=== PATIENT | male | born 1970 | race African-American/Black ===

== ENCOUNTER 2020-04-29 14:44 | Emergency (ER) | payer BC, OTHER ==
[~2020-04-29] VITALS: Ht 170.2 cm; Wt 91.0 kg
--- NOTE | 2020-04-29 15:58 | RAD ---
EXAM: CHEST AP ONLY INDICATION: Reason: cough x 3 weeks, pui / Spl. Instructions: / History: . TECHNIQUE: Single view COMPARISON: None FINDINGS: The heart size is borderline enlarged.. The great vessels appear unremarkable. There is no hilar or mediastinal mass. The lungs are clear. There is no pleural effusion or pneumothorax. There are no significant osseous abnormalities. IMPRESSION: Borderline cardiomegaly. Otherwise no acute cardiopulmonary process. Electronically signed by: Odell Ulloa MD (04/29/2020 3:55 PM) [facility] [place]
--- NOTE | 2020-04-29 16:12 | ED.ADGEN ---
Past Medical History Past Medical History: High Cholesterol, Hypertension Past Surgical History: No Surgical History Smoking Status: Never Smoker Alcohol Use: Occasionally General Adult EDM: Chief Complaint: COUGH HPI: HPI: Patient is a 50 year old AA male who presents to the emergency department with complaints of a cough with clear sputum for the last week. He reports that his chest hurts with coughing and states that his chest feels tight but denies any palpitations. He denies any fever, or known contact with anyone who has COVID- 19. Patient states that he had a Covid test at his congregational earlier this week and it was negative. He reports that he was seen by his primary care doctor this week who diagnosed with hypertension and put him on losartan. He reports that his primary care doctor also gave him a Z-Chapito for his cough. The patient went to an urgent care center yesterday and was prescribed prednisone but he came here today because he continues to have the cough and is worried that he might have pneumonia. He denies any diaphoresis, extremity swelling, dizziness, vomiting, abdominal pain, diarrhea, sore throat, headache, ear pain, or sore throat. Patient states he has had some nausea but he reports that the postnasal drainage and nasal congestion has made him feel nauseated. He currently denies any pain. Review of Systems: Review of Systems: Complete ROS is negative unless otherwise noted in HPI. Allergies: Allergies: Allergies Coded Allergies Type Severity Reaction Last Updated Verified amoxicillin Adverse Reaction Unknown Nausea and Vomiting 04/29/20 Yes Physical Exam: PE: See Above Constitutional: Well developed, well nourished, no acute distress, non-toxic appearance. [] HENT: Normocephalic, atraumatic, bilateral external ears normal, nose normal. [] Eyes: PERRLA, EOMI, conjunctiva normal, no discharge. [] Neck: Normal range of motion, no stridor. [] Cardiovascular:Heart rate regular rhythm, no murmur [] Lungs & Thorax: Bilateral breath sounds CTA, respirations even and unlabored, no retractions, no respiratory distress Skin: Warm, dry, no erythema, no rash. [] Back: No tenderness Extremities: No cyanosis, ROM intact, no edema. [] Neurologic: Alert and oriented X 3, no focal deficits noted. [] Psychologic: Affect normal, judgement normal, mood normal. [] Current Patient Data: Vital Signs: Vital Signs Date Time Temp Pulse Resp B/P (MAP) Pulse Ox O2 Delivery O2 Flow Rate FiO2 04/29/20 15:45 98.5 77 18 194/118 (143) 98 Room Air 98.5 04/29/20 15:03 95.0 EKG: EKG: [] Heart Score: Risk Factors: Risk Factors: DM, Current or recent (<one month) smoker, HTN, HLP, family history of CAD, obesity. Risk Scores: Score 0 - 3: 2.5% MACE over next 6 weeks - Discharge Home Score 4 - 6: 20.3% MACE over next 6 weeks - Admit for Clinical Observation Score 7 - 10: 72.7% MACE over next 6 weeks - Early Invasive Strategies Radiology/Procedures: Radiology/Procedures: PROCEDURE: CHEST AP ONLY EXAM: CHEST AP ONLY INDICATION: Reason: cough x 3 weeks, pui / Spl. Instructions: / History: . TECHNIQUE: Single view COMPARISON: None FINDINGS: The heart size is borderline enlarged.. The great vessels appear unremarkable. There is no hilar or mediastinal mass. The lungs are clear. There is no pleural effusion or pneumothorax. There are no significant osseous abnormalities. IMPRESSION: Borderline cardiomegaly. Otherwise no acute cardiopulmonary process. [] Course & Med Decision Making: Course & Med Decision Making Pertinent Labs and Imaging studies reviewed. (See chart for details) 50-year-old male presents to the emergency room with complaints of chest tightness and a productive cough. He reported concerns of having walking pneumonia. Chest x-ray revealed borderline cardiomegaly, no other acute cardiopulmonary process. The patient's vital signs were stable. Physical exam and HPI is consistent with URI possible COVID-19. COVID-19 swab is ordered. I encouraged the patient to continue taking his Z-Chapito and steroids that were previously prescribed. Wrote prescriptions for Tessalon Perles and an albuterol inhaler. I encouraged patient to return to the ER if symptoms worsened and advised him to follow the COVID-19 instructions and quarantine. Patient verbalized an understanding of home care, medications, follow-up, and return to ED instructions and was in agreement with the plan of care. [] Dragon Disclaimer: Dragon Disclaimer: This electronic medical record was generated, in whole or in part, using a voice recognition dictation system. Departure Departure Impression: Primary Impression: Person under investigation for COVID-19 Additional Impressions: Cough in adult patient URI with cough and congestion Disposition: 01 DC HOME SELF CARE/HOMELESS Condition: STABLE Referrals: TYLER HERNANDEZ DO (PCP) Patient Instructions: Upper Respiratory Infection, Adult, [id number] Additional Instructions: Fill the prescriptions and take as directed. Continue taking the previous medications as prescribed by your primary care doctor in urgent care. Follow the following COVID-19 instructions. Return to the ER if your symptoms worsen. You have been tested for or diagnosed with COVID-19. It is an infection caused by a new type of coronavirus. COVID-19 will cause cold-like or mild flu symptoms in most. It can cause more severe symptoms like problems breathing in some. There is no treatment for COVID-19. The body will clear the infection over time. Self-care will help to ease discomfort. Steps to Take: Self-Care Rest as needed. Healthy habits may help you feel better. Steps include: Choose healthy foods including fruits and vegetables. Drink water throughout the day. Get plenty of sleep each night. If you smoke, try to quit. It may ease breathing. Avoid alcohol. Keep Others Healthy The virus can spread to others. Droplets are released every time you sneeze or cough. The droplets can get into the mouth, nose, or eyes of people near you and lead to infection. To lower the chances of spreading COVID-19 to others: Stay at home until your doctor has said it is safe to leave. If you tested positive this will mean staying isolated until both of the following are true: At least 7 days have passed since the start of illness. You are free of fever for at least 72 hours without the use of medicine. During this time: - Avoid public areas, events, or transportation. Do not return to work or school until your doctor has said it is safe to do so. - Call ahead if you need to go to a medical center. Let them know you may have COVID-19. It will help them guide you where to go. They may also ask you to wear a facemask when you come to the office. - If you call for emergency medical services, let them know you may have COVID- 19. While at home: - Try to avoid close contact with others. Stay about 6 feet away. - If possible, spend most of your time in a separate room from others. - Use a face mask if you will be in close contact with others such as sharing a room or vehicle. - Have someone wipe down common surfaces in the home. Use household community associate every day on areas like doorknobs, counters, or sinks. - Cough or sneeze into a tissue. Throw the tissue away right after use. If a tissue is not available, cough or sneeze into your elbow. - Wash your hands often. Wash them after sneezing or coughing. Use soap and water and wash for at least 20 seconds. Alcohol based hand body cleaner can be used if soap and water is not available. - Do not prepare food for others. Avoid sharing personal items like forks, spoons, or toothbrushes. - Avoid close contact with pets while you are sick. There is no evidence of the virus passing to pets. This is a safety step until more is known about this virus. Isolation can be frustrating. Social interaction can help. Keep in touch with friends and family through phone and tech options. You can still interact with others in your home, just keep a safe distance of about 6 feet. Follow-up: Your doctors office will check in with you to see if there are any changes in your health. You may be asked to keep track of symptoms to share with them. They will also let you know when you are clear to be in public again. Problems to Look Out For: Contact your doctor if your recovery is not going as you expect. Get emergency care if you have problems such as: - Trouble breathing - Nonstop chest pain or pressure - Changes in awareness, confusion, or problems waking - Lips or face have bluish color - Worsening of symptoms If you think you have an emergency, call for emergency medical services right a way. [facility] Albuterol Sulfate (Proair Hfa) 8.5 Gm Hfa.aer.ad 2 PUFF IH PRN Q4-6HRS PRN for wheezing for 21 Days, #1 INHALER 0 Refills Prov: MATHIEU JOHNSON QUALITY NURSE 04/29/20 Benzonatate (TESSALON PERLE) 100 Mg Capsule 1 CAP PO TID PRN for COUGH for 7 Days, #21 CAP 0 Refills Prov: MATHIEU JOHNSON QUALITY NURSE 11/5/20 Problem Qualifiers MATHIEU JOHNSON QUALITY NURSE Apr 29, 2020 16:12
[2020-04-29] MEDS ORDERED: ALBU2.5V8 IH (17:41)
[2020-04-29] MEDS ORDERED: BENZ100C PO (17:41)
[2020-04-29 17:45] VITALS: BP 165/86
--- NOTE | 2020-05-03 10:39 | NUR ---
IP: Informed pt of negative COVID results. Pt verbalized understanding.
== END 2020-04-29 18:04 | disposition home or self-care (01) ==
LOC: ER 14:44
DX: J06.9 Acute upper respiratory infection, unspecified (principal); I10 Essential (primary) hypertension; E78.00 Pure hypercholesterolemia, unspecified; Z20.828 Contact with and (suspected) exposure to other viral communicable diseases
CPT/HCPCS: 71045; 99285; U0003